=== PATIENT | female | born 1995 | race Caucasian/White ===

== ENCOUNTER 2017-03-24 05:54 | Emergency (ER) | payer MEDICAID, OTHER ==
[~2017-03-24] VITALS: Ht 157.5 cm; Wt 129.0 kg
[2017-03-24 06:01] VITALS: Ht 157.5 cm; Wt 129.0 kg
[2017-03-24] MEDS ORDERED: NAPR-688 PO (06:26)
[2017-03-24] MEDS ORDERED: HYDR-906 PO (06:26)
[2017-03-24] MEDS ORDERED: AMOX1TAB10 PO (06:26)
--- NOTE | 2017-03-24 06:30 | ERD ---
ER Documentation Chief Complaint Date/Time DATE: 03/24/17 TIME: 06:28 Chief Complaint sore throat/painful swallowing x 1 day HPI This 21-year-old female presents to the emergency room for sore throat that she noticed this morning. This painful to swallow although she is able to do so. She has had no fevers yet. Otherwise healthy. No ear pain. ROS All systems reviewed and are negative except as per history of present illness. Medications Home Meds Active Scripts Hydrocodone/Acetaminophen (Tendoy 5-325 Tablet) 1 Each Tablet, 1 EACH PO Q6, #10 TAB Prov:LEENA CHA DO 03/24/17 Naproxen* (Naproxen*) 500 Mg Tablet, 500 MG PO BID, #20 TAB Prov:LEENA CHA DO 03/24/17 Amoxicillin/Potassium Clav (Amox-Clav 875-125 mg Tablet) 875-125 mg Tab, 1 TAB PO BID, #20 TAB Prov:LEENA CHA DO 03/24/17 Allergies Allergies: Coded Allergies: No Known Allergy (Unverified , 03/05/12) PMhx/Soc Hx Miscellaneous Medical Probl: No (NO MEDICAL OR SURGICAL HISTORY) Hx Alcohol Use: No Hx Substance Use: No Hx Tobacco Use: No Physical Exam Vitals Vital Signs Date Time Temp Pulse Resp B/P Pulse Ox O2 Delivery O2 Flow Rate FiO2 03/24/17 06:01 97.7 89 20 128/73 99 Physical Exam Const: [] No distress Head: Atraumatic Eyes: Normal Conjunctiva ENT: Normal External Ears, Nose and Mouth. Oropharynx with bilateral tonsillar swelling with right tonsillar exudate. No uvular deviation. No unilateral swelling of the soft palate. Mucous membranes moist Neck: Full range of motion.. Right anterior cervical adenopathy. Procedures/MDM Presumed streptococcal pharyngitis and patient with 3 out of 4 Cent[facility] criteria. Patient declines any medication for pain in the ER. She preferred to go to the pharmacy. I am discharging with naproxen, a few Tendoy tabs, Augmentin. Primary care follow-up in 2 3 days and return precautions to ER. Departure Diagnosis: Primary Impression: Acute pharyngitis Condition: Stable Patient Instructions: Pharyngitis, Strep (Presumed) Additional Instructions: Call your primary care doctor TOMORROW for an appointment during the next 2-3 days.See the doctor sooner or return here if your condition worsens before your appointment time. LEENA CHA DO Mar 24, 2017 06:30
== END 2017-03-24 06:45 | disposition home or self-care (01) ==
LOC: FTE 05:54
DX: J02.9 Acute pharyngitis, unspecified (principal)
CPT/HCPCS: 99284